=== PATIENT | female | born 1970 | race Caucasian/White ===

== ENCOUNTER 2018-04-11 13:19 | Outpatient (CLI) | payer OTHER ==
[~2018-04-11 13:19] MED LIST: AMOX1TAB12 PO; BACTROBAN OINT22 GM TP; MOTRIN800 MG PO
== END 2018-04-11 15:47 | disposition home or self-care (01) ==
LOC: MAMO-SONO 13:19
DX: Z12.31 Encounter for screening mammogram for malignant neoplasm of breast (principal); N60.11 Diffuse cystic mastopathy of right breast

== ENCOUNTER 2018-04-25 10:43 | Outpatient (CLI) | payer OTHER | END 2018-04-25 14:59 | disposition home or self-care (01) | LOC: SONOGRAMA 10:43 | DX: R59.0 Localized enlarged lymph nodes (principal) ==

== ENCOUNTER 2021-05-08 08:45 | Outpatient (CLI) | payer OTHER | END 2021-05-08 09:01 | disposition home or self-care (01) | LOC: SONOGRAMA 08:45 | PROVIDERS: ATTEND Obstetrics & Gynecology | DX: N83.291 Other ovarian cyst, right side (principal); N91.1 Secondary amenorrhea ==

== ENCOUNTER 2023-02-28 12:15 | Outpatient (CLI) | payer OTHER | END 2023-02-28 12:20 | disposition home or self-care (01) | LOC: MAMO-SONO 12:15 | PROVIDERS: ATTEND Obstetrics & Gynecology | DX: R10.2 Pelvic and perineal pain (principal); N60.11 Diffuse cystic mastopathy of right breast; N60.12 Diffuse cystic mastopathy of left breast; Z12.31 Encounter for screening mammogram for malignant neoplasm of breast ==

== ENCOUNTER 2023-02-28 12:40 | Outpatient (CLI) | payer OTHER | END 2023-02-28 12:45 | disposition home or self-care (01) | LOC: NUCLEAR 12:40 | PROVIDERS: ATTEND Obstetrics & Gynecology | DX: M81.0 Age-related osteoporosis without current pathological fracture (principal) ==

== ENCOUNTER 2023-05-06 05:30 | Day surgery (SDC) | payer OTHER ==
[2023-05-02 13:50] LABS: HEMATOCRIT 38.8 % (36.0-45.00); HEMOGLOBIN 12.5 g/dL (12.0-15.00); MEAN CELL VOLUME 84.2 fL (80.00-100.00); MEAN CORPUSCULAR HEMOGLOBIN 27.2 pg (27.00-32.0); MEAN CORPUSCULAR HGB CONC 32.3 g/dl (32.0-36.0); PLATELET COUNT 265 K/uL (150-450); RED BLOOD COUNT 4.61 M/uL (4.00-6.00)
[2023-05-02 14:19] LABS: INR 1.01; PARTIAL THROMBOPLASTIN TIME 25.5 SECONDS (22.0-34.0); PROTHROMBIN TIME 10.6 SECONDS (9.0-11.5)
[2023-05-02 14:29] LABS: ALBUMIN 3.8 gm/dL (3.4-5.0); BILIRUBIN TOTAL 0.3 mg/dL (0.3-1.2); CALCIUM 9.4 mg/dL (8.5-10.1); CREATININE SERUM 0.74 mg/dL (0.55-1.02); GFR 82.74; GLOBULINA 3.3 G/DL (2.4-3.5); POTASSIUM 4.3 mEq/L (3.5-5.1); TOTAL PROTEIN 7.1 gm/dL (6.4-8.2)
[~2023-05-06] VITALS: Ht 162.6 cm; Wt 54.4 kg
[~2023-05-06 05:30] MED LIST changes: +INDERAL LA80 MG PO; +[UNRECOGNIZED DRUG - OTHER]
== END 2023-05-06 12:20 | disposition home or self-care (01) ==
LOC: CIR.AMB 05:30
PROVIDERS: ATTEND Obstetrics & Gynecology
DX: N72 Inflammatory disease of cervix uteri (principal); N85.8 Other specified noninflammatory disorders of uterus; N93.8 Other specified abnormal uterine and vaginal bleeding; D06.9 Carcinoma in situ of cervix, unspecified; N93.9 Abnormal uterine and vaginal bleeding, unspecified; Z88.2 Allergy status to sulfonamides; Z20.822 Contact with and (suspected) exposure to COVID-19; Z88.1 Allergy status to other antibiotic agents

== ENCOUNTER 2023-06-03 07:06 | Day surgery (SDC) | payer OTHER | END 2023-06-03 12:35 | disposition home or self-care (01) | LOC: AMB-ENDOS 07:06 | PROVIDERS: ATTEND Colon & Rectal Surgery | DX: K63.5 Polyp of colon (principal); K57.30 Diverticulosis of large intestine without perforation or abscess without bleeding; K64.8 Other hemorrhoids; Z88.2 Allergy status to sulfonamides; Z20.822 Contact with and (suspected) exposure to COVID-19; Z91.018 Allergy to other foods ==